=== PATIENT | female | born 1985 | race American Indian/Alaskan Native ===

== ENCOUNTER 2017-10-06 12:15 | Emergency (ER) | payer OTHER ==
--- NOTE | 2017-10-06 12:41 | ED PDOC ---
Arrival/HPI - General Chief Complaint: Trauma Time Seen by Provider: 10/06/17 12:29 Historian: Patient - History of Present Illness Narrative History of Present Illness (Text): 10/06/17 12:30 pt p/w + 1 day upper shoulder/lower neck region cramps/aches/pain, worse with movement and turning her head; pt states yesterday while at work, she was lifting heavy paint cans and on one occasion felt severe neck aches/cramps occurring; pt states since then, movement of her head/movement of her arms causes her to have more pain; pt states no fever/chills/sweats, no cp/sob/ palpitations, no abd pain, no n/v, no urinary/bowel changes, no gross bleeding, no fall/trauma/sick contact, no travel; pt denied other complaints pt is here for further eval. PCP: ?? pt is left hand dominate Time/Duration: 24 hours Symptom Onset: Sudden Symptom Course: Unchanged Quality: Tightness, Cramping Severity Level: Severe Activities at Onset: Other (movement) Context: Exertion, Work Past Medical History - Provider Review Nursing Documentation Reviewed: Yes - Travel History Have you recently traveled outside [place] w/in the past 3 mons?: No - Past History Past History: Non-Contributing - Infectious Disease Hx of Infectious Diseases: None - Reproductive Currently : Unknown Family/Social History - Physician Review Nursing Documentation Reviewed: Yes Family/Social History: No Known Family HX Smoking Status: Current Some Days Smoker Hx Alcohol Use: No Hx Substance Use: No Hx Substance Use Treatment: No Allergies/Home Meds Allergies/Adverse Reactions: Allergies No Known Allergies Allergy (Verified 10/06/17 12:28) Review of Systems - Review of Systems Constitutional: Normal Eyes: Normal ENT: Normal Respiratory: Normal Cardiovascular: Normal Gastrointestinal: Normal Genitourinary Female: Normal Musculoskeletal: Neck Pain. absent: Back Pain Skin: Normal Neurological: Normal Endocrine: Normal Hemo/Lymphatic: Normal Psychiatric: Normal Physical Exam - Physical Exam Narrative Physical Exam (Text): 10/06/17 12:29 General: alert/awake, GCS = 15, oriented x 3, resting in bed, uncomfortable, cooperative, interactive; mild distress due to pain Head: NC/AT EYE: PERRLA, EOMI, sclera anicteric, no nystagmus, no photophobia; visual field intact b/l Facial: WNL Oral: uvula/tongue are midline, no exudate/lesions, no drooling/stridor, no dysphonia; intact dentitions NECK: decr ROM looking to right/left due to lower para-cervical tenderness, pt with decr ROM to looking up and down, no midline tenderness, no nuchal rigidity , no meningeal signs; no step off; no gross deformities Chest: CTA b/l, no w/r/r; no tachypenia, no accessory muscle use noted Chest Wall: no crepitus, no lesions, no gross deformities, no focal tenderness Cardiac: +S1, +S2, no m/r/r, no tachycardia Abdominal: +BS, soft/nd/nt, well nourished patient; no masses/rebound/guarding/ rigidity; no miner's sign, no mcburney's point tenderness Extremities: decr ROM to b/l upper extremities due to pain, strength 5/5 grossly intact in all limbs, neurovasc intact b/l; + ambulatory; reflex +2/2 BACK: no step off, no midline tenderness, NO crepitus, no gross deformities noted; Intact ROM SKIN: cap refill < 1 sec, no ulcerations, no petechiae, no rashes; no pallor NEURO: CNII-XII WNL, no facial asymmetries, no slurr speech, oriented x 3 NIH stroke scale ~ 0 Psych: normal insight, normal affect; follows command with ease Vital Signs Reviewed: Yes Vital Signs Temp Pulse Resp BP Pulse Ox 10/06/17 12:30 98.5 F 92 H 18 141/88 100 Temperature: Afebrile Blood Pressure: Hypertensive Pulse: Regular Respiratory Rate: Normal Appearance: Positive for: Well-Appearing, Non-Toxic, Uncomfortable. No: Comfortable, Ill-Appearing, Unkept Pain Distress: Mild Mental Status: Positive for: Alert and Oriented X 3 - Systems Exam Head: Present: Atraumatic, Normocephalic Medical Decision Making ED Course and Treatment: 10/06/17 1255 Impression: neck pain i have consider all the differential diagnosis regarding pt's chief medical complaints/clinical findings, including but are not limited to: atrumatic cervical strain A/P: atrumatic cervical strain - pain control - supportive care - observe/reevaluation 10/06/17 13:25 pt is made aware of her medical results pt is encouraged NO heavy lifting, no prolonged/repetitive movements pt is encouraged REST, ice your shoulders 15min/hr over the next 1-2 days pt will f/u as directed pt will be discharged home Re-evaluation Time: 13:20 Reassessment Condition: Improving,but remains with symptoms - Medication Orders Current Medication Orders: Discontinued Medications Diazepam (Valium) 2 mg PO ONCE ONE PRN Reason: Protocol Stop: 10/06/17 12:38 Last Admin: 10/06/17 13:15 Dose: 2 mg Ketorolac Tromethamine (Toradol) 30 mg IM STAT STA Stop: 10/06/17 12:38 Last Admin: 10/06/17 13:15 Dose: 30 mg Disposition/Present on Arrival - Present on Arrival Any Indicators Present on Arrival: No History of DVT/PE: No History of Uncontrolled Diabetes: No Urinary Catheter: No History of Decub. Ulcer: No History Surgical Site Infection Following: None - Disposition Have Diagnosis and Disposition been Completed?: Yes Diagnosis: Cervical strain, acute Disposition: HOME/ ROUTINE Disposition Time: 13:30 Patient Plan: Discharge Patient Problems: Current Active Problems Problem Status Onset Cervical strain, acute Acute Condition: STABLE Discharge Instructions (ExitCare): Cervical Muscle Strain Print Language: BULGARIAN Additional Instructions: Make sure to see your doctor in 1-2 days DRINK PLENTY OF FLUIDS take your medications as prescribed RETURN TO ED IF worse pain, cant breath, persistent vomiting, high fever >101- 102 for hours, altered behavior, slurr speech, facial changes, focal weakness ( arm/leg or both), unable to urinate, heavy/persistent bleeding, passing out, chest pain, or other medical emergencies Prescriptions: diaZEpam [Valium] 5 mg PO TID PRN #12 tab PRN Reason: Muscle Spasm Ibuprofen [Motrin] 600 mg PO QID PRN #30 tab PRN Reason: Pain, Mild (1-3) Referrals: lAiza Rodrigez MD [Staff Provider] - Follow up with primary Alejandro Cunningham MD [Staff Provider] - Follow up with primary [facility] [Outside] - Follow up with primary [facility] [Outside] - Follow up with primary [facility] [Outside] - Follow up with primary Forms: [facility] ([place]wana), WORK NOTE
[2017-10-06 12:59] VITALS: BP 141/88; RESP 18; TEMP 98.5; O2SAT 100
[2017-10-06 13:50] VITALS: PULSE 72
== END 2017-10-06 13:45 | disposition home or self-care (01) ==
LOC: ED 12:15
DX: S16.1XXA Strain of muscle, fascia and tendon at neck level, initial encounter (principal); X50.0XXA Overexertion from strenuous movement or load, initial encounter; Y92.89 Other specified places as the place of occurrence of the external cause; Y99.0 Civilian activity done for income or pay
CPT/HCPCS: 96372; 99284; J1885